=== PATIENT | male | born 1965 | race Caucasian/White ===

== ENCOUNTER 2016-11-25 21:15 | Emergency (ER) | payer MEDICARE ==
[~2016-11-25] VITALS: Ht 167.6 cm; Wt 81.6 kg
[~2016-11-25 21:15] MED LIST: ALBUTEROL SULF8.5 GM INH; AMOXICILLIN500 MG ORAL; BACTRIM DS TAB1 EAC1 ORAL; BACTRIM-DS1 EA ORAL; KEFLEX500 MG ORAL; LITHIUM CARBON150 MG ORAL; NKM; OFLOXACIN10 ML OP; PREDNISONE20 MG ORAL; VICOPROFEN 2001 EACH ORAL; XOPENEX HFA15 GM INH; ZYPREXA2.5 MG ORAL
[2016-11-25 21:50] VITALS: BP 150/98
--- NOTE | 2016-11-25 22:16 | Emergency Room Report ---
History of Present Illness General Chief Complaint: Skin Rash/Abscess Source: Patient Present Illness HPI This is a 51-year-old male presents with chief complaint of a hole in his right leg. Denies any fever chills denies any nausea vomiting. He had infection couple weeks ago. Now said that there is a hole. Mild pain to the area. Allergies: Coded Allergies: CHEESE (Verified Allergy, Mild, 12/06/14) Patient History Past Medical History: see triage record, old chart reviewed Past Surgical History: other Pertinent Family History: none Social History: Reports: smoking Immunizations: other Reviewed Nursing Documentation: PMH: Agreed, PSxH: Agreed Nursing Documentation-PMH Past Medical History: No History, Except For Hx Cardiac Problems: Yes Hx COPD: Yes Review of Systems Eye: Denies: blurred vision, eye pain ENT: Denies: ear pain, nose congestion, throat swelling Respiratory: Denies: cough, shortness of breath Cardiovascular: Denies: chest pain, palpitations Gastrointestinal: Denies: abdominal pain, diarrhea, nausea, vomiting Musculoskeletal: Denies: back pain, joint pain Skin: Denies: rash Neurological: Denies: headache, numbness Endocrine: Denies: increased thirst, increased urine Hematologic/Lymphatic: Denies: easy bruising All Other Systems: negative except mentioned in HPI Physical Exam Vital Signs Date Time Temp Pulse Resp B/P Pulse Ox O2 Delivery O2 Flow Rate FiO2 11/25/16 21:34 97.3 98 16 150/98 100 Room Air vitals with hypertension Sp02 EP Interpretation: reviewed, normal General Appearance: well appearing, no apparent distress, alert Head: normocephalic, atraumatic Eyes: bilateral eye EOMI, bilateral eye PERRL ENT: hearing grossly normal, normal pharynx Neck: full range of motion, supple, no meningismus Respiratory: chest non-tender, lungs clear, normal breath sounds Cardiovascular #1: regular rate, rhythm, no murmur Gastrointestinal: normal bowel sounds, non tender, no mass, no organomegaly, no bruit, non-distended Musculoskeletal: back normal, gait/station normal, normal range of motion, other - Patient with laceration to the right lower extremity above the ankle. No drainage. Psychiatric: other - Patient is combative and yelling. Calling me a moron and communist bc I told him that he can't go out to smoke. Skin: warm/dry Medical Decision Making Diagnostic Impression: Primary Impression: Ulcer ER Course Patient with an ulceration to his leg secondary to an abscess. No new infection. No evidence of necrotizing fasciitis. We'll discharge home. Patient is combative probably secondary to drugs or alcohol. He left without paperwork. Last Vital Signs Date Time Temp Pulse Resp B/P Pulse Ox O2 Delivery O2 Flow Rate FiO2 11/25/16 21:34 97.3 98 16 150/98 100 Room Air Status: unchanged Disposition: HOME, SELF-CARE Condition: Stable VILMA PAZ M.D. Nov 25, 2016 22:16
== END 2016-11-25 22:00 | disposition home or self-care (01) ==
LOC: EMR 21:57
DX: L97.319 Non-pressure chronic ulcer of right ankle with unspecified severity (principal); L02.415 Cutaneous abscess of right lower limb; J44.9 Chronic obstructive pulmonary disease, unspecified; F17.200 Nicotine dependence, unspecified, uncomplicated
CPT/HCPCS: 99282

== ENCOUNTER 2016-12-10 08:07 | Emergency (ER) | payer MEDICARE, OTHER ==
[~2016-12-10] VITALS: Ht 180.3 cm; Wt 90.7 kg
[2016-12-10 08:20] VITALS: BP 156/115
[2016-12-10] MEDS: Ipratropium 0.02% Inh Soln 2.5ml UD HHN SCH ×2 (08:27→08:28)
[2016-12-10] MEDS: Albuterol ud Inhalation HHN SCH ×2 (08:27→08:28)
[2016-12-10] MEDS ORDERED: PredniSONE 20mg tab ORAL ONE (08:30)
[2016-12-10] MEDS ORDERED: AMOXICILLIN500 MG ORAL (08:36)
[2016-12-10] MEDS ORDERED: ALBUTEROL SULF8.5 GM INH (08:36)
[2016-12-10] MEDS ORDERED: PREDNISONE20 MG ORAL (08:36)
--- NOTE | 2016-12-10 08:50 | Emergency Room Report ---
History of Present Illness General Chief Complaint: Dyspnea/Respdistress Source: Patient Present Illness HPI 51-year-old male presents ED for evaluation. Patient states he feels short of breath. Has history of COPD. Symptoms started this morning. Notes cough with yellowish sputum. Denies fevers or chills. Denies chest pain. Admits to smoking. Patient states he ran out of his inhaler. No other aggravating relieving factors. Denies any other associated symptoms Allergies: Coded Allergies: CHEESE (Verified Allergy, Mild, 12/06/14) Patient History Past Medical History: COPD Past Surgical History: none Pertinent Family History: none Social History: Denies: alcohol use, drug use, smoking Immunizations: UTD Reviewed Nursing Documentation: PMH: Agreed, PSxH: Agreed Nursing Documentation-PMH Past Medical History: No History, Except For Hx Cardiac Problems: Yes Hx COPD: Yes Review of Systems All Other Systems: negative except mentioned in HPI Physical Exam Vital Signs Date Time Temp Pulse Resp B/P Pulse Ox O2 Delivery O2 Flow Rate FiO2 12/10/16 08:10 98.1 130 20 156/115 94 Room Air Sp02 EP Interpretation: reviewed, normal General Appearance: no apparent distress, alert, GCS 15, non-toxic Head: normocephalic Eyes: bilateral eye PERRL, bilateral eye normal inspection ENT: normal ENT inspection Neck: normal inspection Respiratory: decreased breath sounds, wheezing Cardiovascular #1: regular rate, rhythm, no edema Gastrointestinal: normal inspection Rectal: deferred Genitourinary: no CVA tenderness Musculoskeletal: normal inspection Neurologic: alert, oriented x3, responsive, motor strength/tone normal, sensory intact, speech normal Psychiatric: normal inspection Skin: normal inspection Lymphatic: normal inspection Medical Decision Making Diagnostic Impression: Primary Impression: COPD exacerbation ER Course Hospital Course 51-year-old male presents to ED complaining of cough, wheezing Differential diagnoses include: URI, bronchitis, asthma/COPD, pneumonia Clinical course Patient placed on stretcher. After initial history and physical I ordered prednisone and nebulizer treatment. patient is initially very combative and agitated. Refusing all treatment. I convinced patient to stay for a breathing treatment Upon reassessment patient states he feels better. Given history of COPD and smoking we will prescribe antibiotics Diagnosis - COPD exacerbation Stable and discharged home with prescriptions for Rx prednisone, amoxicillin, albuterol. Instructed to followup with PMD. Return to ED if symptoms recur or worsen Last Vital Signs Date Time Temp Pulse Resp B/P Pulse Ox O2 Delivery O2 Flow Rate FiO2 12/10/16 08:21 130 20 Room Air 12/10/16 08:20 98.1 156/115 94 Status: improved Disposition: HOME, SELF-CARE Condition: Stable Scripts Albuterol Sulfate* (ALBUTEROL SULFATE MDI*) 8.5 Gm Hfa.aer.ad 2 PUFF INH Q4H Y for cough/wheezing, #1 EA 0 Refills Prov: JOHN PAUL SIMMS M.D. 12/10/16 Prednisone* (PREDNISONE*) 20 Mg Tablet 40 MG ORAL DAILY, #10 TAB Prov: JOHN PAUL SIMMS M.D. 12/10/16 Amoxicillin* (AMOXIL*) 500 Mg Capsule 500 MG ORAL THREE TIMES A DAY, #21 CAP Prov: JOHN PAUL SIMMS M.D. 12/10/16 Referrals: NOT CHOSEN [facility]/,REFERRING (PCP) Patient Instructions: Chronic Obstructive Pulmonary Disease Exacerbation JOHN PAUL SIMMS M.D. Dec 10, 2016 08:50
[2016-12-10 08:59] VITALS: BP 158/99
== END 2016-12-10 09:01 | disposition home or self-care (01) ==
LOC: EMR 08:21
DX: J44.1 Chronic obstructive pulmonary disease with (acute) exacerbation (principal)
CPT/HCPCS: 99284

== ENCOUNTER 2016-12-23 07:10 | Emergency (ER) | payer MEDICARE, OTHER ==
[~2016-12-23] VITALS: Ht 177.8 cm; Wt 83.9 kg
[2016-12-23] MEDS ORDERED: ZYPREXA2.5 MG ORAL (07:21)
[2016-12-23] MEDS ORDERED: NAPROXEN500 M2 ORAL (07:21)
[2016-12-23] MEDS ORDERED: IBUPROFEN600 MG ORAL (07:21)
[2016-12-23 07:46] VITALS: BP 107/71
--- NOTE | 2016-12-23 07:49 | Emergency Room Report ---
History of Present Illness General Chief Complaint: General Complaint Source: Patient Present Illness HPI Patient presents with complaints of old injury to the right lateral leg Patient reports injury several years ago feels that the discoloration in the area has stayed Patient reports that he has been to [facility], [facility], here, and multiple other facilities does not feel he is getting help he needs Otherwise denies any fevers denies any other acute injury Denies any chest pain or shortness of breath denies any swelling Denies any other pain to the site Allergies: Coded Allergies: CHEESE (Verified Allergy, Mild, 12/06/14) Patient History Past Medical History: see triage record Pertinent Family History: none Reviewed Nursing Documentation: PMH: Agreed, PSxH: Agreed Nursing Documentation-PMH Hx Cardiac Problems: Yes Hx COPD: Yes History Of Psychiatric Problem: Yes Review of Systems All Other Systems: negative except mentioned in HPI Physical Exam Vital Signs Date Time Temp Pulse Resp B/P Pulse Ox O2 Delivery O2 Flow Rate FiO2 12/23/16 07:15 98.2 125 16 107/71 97 Room Air Sp02 EP Interpretation: reviewed, normal General Appearance: no apparent distress, alert Head: normocephalic, atraumatic Eyes: bilateral eye EOMI, bilateral eye PERRL ENT: normal pharynx, no angioedema Neck: full range of motion, supple, thyroid normal Respiratory: lungs clear, normal breath sounds Cardiovascular #1: regular rate, rhythm, no edema Gastrointestinal: non tender, soft Musculoskeletal: normal inspection - Patient ambulatory without any focal deficit, full flexion-extension at the right ankle appropriate Eversion and inversion intact Neurologic: alert, oriented x3, responsive Skin: other - Patient has evidence of venous stasis on the right side, there is evidence of some flaking of skin on the foot as well, there is a area of 1 x 1 cm circular discoloration that appears to be fairly chronic, otherwise appropriate pulses intact distally and proximally, and the feel of the foot is appropriate Lymphatic: other - as above Medical Decision Making Diagnostic Impression: Primary Impression: venous stasis ER Course Patient's evaluation reveals a chronic appearance of previous injury Does not appear to have any acute vascular compromise, exam is appropriate for good flow Patient is fairly frustrated regarding the lack of care at multiple facilities I encouraged him to followup with physician that I will provide for him Patient would benefit from primary care along with chronic wound care management With this the patient is agreeable and will followup outpatient closely Last Vital Signs Date Time Temp Pulse Resp B/P Pulse Ox O2 Delivery O2 Flow Rate FiO2 12/23/16 07:15 98.2 125 16 107/71 97 Room Air Status: unchanged Disposition: HOME, SELF-CARE Condition: Stable Referrals: Ervin Hand MD Patient Instructions: Stasis Dermatitis, Venous Stasis or Chronic Venous Insufficiency Additional Instructions: Patient is provided with the discharge instructions notified to follow up with primary doctor in the next 2-3 days otherwise return to the er with any worsening symptoms. Please note that this report is being documented using [employer] technology. This can lead to erroneous entry secondary to incorrect interpretation by the dictating instrument. EUGENIO PÉREZ D.O. Dec 23, 2016 07:49
== END 2016-12-23 07:47 | disposition home or self-care (01) ==
LOC: EMR 07:25
DX: I87.8 Other specified disorders of veins (principal); Z91.09 Other allergy status, other than to drugs and biological substances; J44.9 Chronic obstructive pulmonary disease, unspecified; X58.XXXA Exposure to other specified factors, initial encounter; Y93.9 Activity, unspecified; Y92.9 Unspecified place or not applicable
CPT/HCPCS: 99282